=== PATIENT | female | born 1955 | race Hispanic/Latino ===

== ENCOUNTER → 2024-03-20 | Outpatient (CLI) | payer MEDICARE ==
--- NOTE | 2024-03-20 12:30 | HMCIMG ---
DEXA BONE DENSITY SURVEY REASON: AGE-RELATED OSTEOPOROSIS W/O CURRENT PATHOLOGICAL FX COMPARISON: None TECHNIQUE: DEXA bone densitometry was performed of the lumbar spine and left hip. FINDINGS: Mean bone mass density in the spine is 1.162 g/sq cm, T score 1.0, within normal limits. Femoral neck T score however is -2.4 and total proximal femur T score is -2.2 consistent with osteopenia. IMPRESSION: 1. Osteopenia indicating a moderate fracture risk.
== END | disposition home or self-care (01) ==
LOC: RAH 09:37
PROVIDERS: ATTEND Family Medicine
DX: Z13.820 Encounter for screening for osteoporosis (principal); M85.88 Other specified disorders of bone density and structure, other site; M81.0 Age-related osteoporosis without current pathological fracture
CPT/HCPCS: 77080